=== PATIENT | male | born 1950 | race Caucasian/White ===

== ENCOUNTER 2018-06-18 10:10 | Emergency (ER) | payer OTHER ==
[~2018-06-18] VITALS: Ht 177.8 cm; Wt 85.4 kg
--- NOTE | 2018-06-18 10:27 | NUR ---
PT AMBULATED TO ER BED 11
[2018-06-18 10:30] VITALS: BP 120/71
[2018-06-18] MEDS ORDERED: NACL 0.9% 1,000 ML IV SCH (11:04)
[2018-06-18] MEDS ORDERED: ACETAMINOPHEN 325 MG TAB PO ONE (11:15)
--- NOTE | 2018-06-18 11:23 | NUR ---
PT TAKEN TO CT AT THIS TIME
--- NOTE | 2018-06-18 11:26 | NUR ---
PT PRESENTS WITH PRODUCTIVE COUGH, SOB, ALOC, HEADACHE 07/05. PT SENT FROM URGENT CARE AND IS HERE WITH DAUGHTER. LUNGS CLEAR BILATERALLY. HX OF CHRONIC BRONCHITIS. PT ON NASULA CANNULA 4L. O2 96%. VSS. NO S/S OF DISTRESS. SIDE RAIL UP. PT ON MONITOR. WILL CONTINUE TO MONITOR.
--- NOTE | 2018-06-18 11:42 | NUR ---
PT BACK FROM CT WITHOUT INCIDENT. LABS BEING DRAWN, VSS. NO S/S OF DISTRESS.
[2018-06-18 11:55] LABS: BASOPHILS % (AUTO) 0.4 % (0.0-2.0); EOSINOPHILS % (AUTO) 0.3 % (0.0-4.0); HEMATOCRIT 37.7 % (36-52); HEMOGLOBIN 12.7 g/dL (12.0-18.0); LYMPHOCYTES # (AUTO) 0.8 K/uL (2.0-11.5); LYMPHOCYTES % (AUTO) 9.6 % (20.5-51.1); MEAN CORPUSCULAR HEMOGLOBIN 30 pg (27-31); MEAN CORPUSCULAR HGB CONC 34 g/dL (33-37); MEAN CORPUSCULAR VOLUME 90.1 fL (80-94); MONOCYTES % (AUTO) 12.3 % (1.7-9.3); NEUTROPHILS # (AUTO) 6.4 K/uL (1.8-7.7); NEUTROPHILS % (AUTO) 77.4 % (42.2-75.2); PLATELET COUNT (AUTO) 187 K/uL (140-450); RED BLOOD CELL COUNT(AUTO) 4.18 MIL/uL (4.20-6.10); RED CELL DISTRIBUTION WIDTH 13.6 % (11.6-13.7); WHITE BLOOD COUNT (AUTO) 8.3 K/uL (4.8-10.8)
[2018-06-18 12:24] LABS: ANION GAP 10.9 (8-16); CREATININE 0.9 mg/dL (0.7-1.3); POTASSIUM 3.9 mmol/L (3.5-5.1)
[2018-06-18] MEDS ORDERED: KETOROLAC 15 MG/ML VIAL IVP ONE (12:25)
[2018-06-18 12:29] LABS: ALBUMIN 2.9 g/dL (3.4-5.0); TOTAL BILIRUBIN 0.4 mg/dL (0.0-1.0)
[2018-06-18] MEDS ORDERED: ACET-9234 PO (12:59)
[2018-06-18] MEDS ORDERED: FIO PO (12:59)
[2018-06-18] MEDS ORDERED: METR250T2 PO (12:59)
[2018-06-18] MEDS ORDERED: [UNRECOGNIZED DRUG - CODE] NS (12:59)
[2018-06-18] MEDS ORDERED: AMOX500C25 PO (12:59)
[2018-06-18] MEDS ORDERED: AZIT250T4 PO (12:59)
[2018-06-18] MEDS ORDERED: SCOP1PAT TP (12:59)
[2018-06-18] MEDS ORDERED: CIPR500T4 PO (12:59)
[2018-06-18] MEDS ORDERED: ATRO1TAB PO (12:59)
[2018-06-18] MEDS ORDERED: [UNRECOGNIZED DRUG - CODE] TP (12:59)
--- NOTE | 2018-06-18 13:28 | NUR ---
PT AMBULATED TO BATHROOM AT THIS TIME
[2018-06-18 13:36] LABS: APPEARANCE,URINE CLEAR (CLEAR); BILIRUBIN,URINE NEGATIVE (NEGATIVE); BLOOD, URINE NEGATIVE (NEGATIVE); COLOR,URINE YELLOW (YELLOW); LEUKOCYTE ESTERASE ,URINE NEGATIVE (NEGATIVE); NITRITE, URINE NEGATIVE (NEGATIVE); UGLUCOSE NEGATIVE (NEGATIVE)
--- NOTE | 2018-06-18 13:47 | NUR ---
PAIN DECREASED 1/10.
[2018-06-18 14:00] VITALS: BP 101/56
--- NOTE | 2018-06-18 14:01 | NUR ---
Patient discharged with v/s stable. IV D/C'd with angiocath intact. Written and verbal after care instructions given and explained. Patient verbalized understanding. Ambulatory with steady gait with daughter. All questions addressed prior to discharge. Advised to follow up with PMD.
--- NOTE | 2018-06-21 08:45 | NUR ---
Late entry. Confirmed with RN that 1000ml 0.9NS IV bolus completed at 1350.
== END 2018-06-18 14:07 | disposition home or self-care (01) ==
LOC: MED 10:10
DX: B34.9 Viral infection, unspecified (principal); G89.29 Other chronic pain; R51 Headache; Z79.899 Other long term (current) drug therapy; R41.82 Altered mental status, unspecified
CPT/HCPCS: 36415; 70450; 80053; 81003; 83605; 84484; 85025; 87040; 87086; 87804; 93005; 96361; 96374; 99284; J1885; J7030